=== PATIENT | male | born 1970 | race Caucasian/White ===

== ENCOUNTER → 2023-08-02 | Outpatient (CLI) | payer BC ==
[~2023-08-02] MED LIST: CEFAZOLIN SODIUM IV; LEVOFLOXACIN750 M2 PO; METFORMIN HYDR500 MG PO; XARE20MG PO; XARELTO15 M1 PO
== END | disposition home or self-care (01) ==
LOC: CARD 13:21
PROVIDERS: ATTEND Podiatrist
DX: Z01.818 Encounter for other preprocedural examination (principal); M19.09 Primary osteoarthritis, other specified site

== ENCOUNTER → 2023-11-01 | Day surgery (SDC) | payer BC ==
[2023-10-30 13:39] VITALS: BP 128/65
[~2023-11-01] VITALS: Ht 198.1 cm; Wt 112.9 kg
[~2023-11-01] MED LIST changes: +BUPIVACAINE 0.5% 30 ML IV ONE; +HYDROCODONE-AC1 EAC1 PO; +Ketamine Hydrochloride 500 MG/10 ML VIAL IV ONE; +LISINOPRIL5 MG PO; +Lidocaine Hydrochloride 2% 10 ML AMP IM ONE; +MOUNJARO5 MG/0.51 SQ; +Midazolam Hydrochloride 2 MG/2 ML VIAL IV ONE; +Midazolam Hydrochloride 2 MG/2 ML VIAL IV STA; +PROPOFOL 200 MG/20 ML VIAL IV ONE; +ROSUVASTATIN CA20 MG PO; +SODIUM CHLORIDE 0.9% 1,000 ML IV ONE; +SODIUM CHLORIDE 0.9% 1,000 ML IV SCH; +TRAMADOL HCL50 MG PO; +VIBRA-TAB100 MG PO; +Vancomycin Hydrochloride 1,000 MG VIAL T ONE; +XARELTO10 MG PO; +ceFAZolin sodium/sodium chlor 20 ML IV ONE; +ePHEDrine Sulfate 25 MG/5 ML SYRINGE IV ONE; +fentaNYL CITRATE 100 MCG/2 ML VIAL IV ONE
[2023-11-01 11:30] VITALS: BP 133/71
[2023-11-01 14:56] VITALS: BP 112/76
[2023-11-01 15:15] VITALS: BP 112/73
[2023-11-01 15:30] VITALS: BP 115/79
[2023-11-02 11:08] LABS: ACID FAST SPEC PROCESSING Tissue Grinding (.)
[2023-11-02 11:08] LABS: ACID FAST SPEC PROCESSING Tissue Grinding (.)
[2023-11-10 14:08] LABS: ORGANISM ID Final report (.)
== END | disposition home or self-care (01) ==
LOC: SDC 10-30 13:15
PROVIDERS: ATTEND Podiatrist
DX: T84.84XA Pain due to internal orthopedic prosthetic devices, implants and grafts, initial encounter (principal); M24.575 Contracture, left foot; E11.621 Type 2 diabetes mellitus with foot ulcer; L97.529 Non-pressure chronic ulcer of other part of left foot with unspecified severity; M86.8X7 Other osteomyelitis, ankle and foot; M19.072 Primary osteoarthritis, left ankle and foot; Z87.891 Personal history of nicotine dependence; Z98.890 Other specified postprocedural states; Z79.899 Other long term (current) drug therapy; X58.XXXA Exposure to other specified factors, initial encounter

== ENCOUNTER 2025-05-23 10:10 | Emergency (ER) | payer BC ==
[~2025-05-23] VITALS: Ht 195.5 cm; Wt 105.2 kg
[~2025-05-23 10:10] MED LIST changes: -BUPIVACAINE 0.5% 30 ML IV ONE; -Ketamine Hydrochloride 500 MG/10 ML VIAL IV ONE; -Lidocaine Hydrochloride 2% 10 ML AMP IM ONE; -Midazolam Hydrochloride 2 MG/2 ML VIAL IV ONE; -Midazolam Hydrochloride 2 MG/2 ML VIAL IV STA; -PROPOFOL 200 MG/20 ML VIAL IV ONE; -SODIUM CHLORIDE 0.9% 1,000 ML IV ONE; -SODIUM CHLORIDE 0.9% 1,000 ML IV SCH; -Vancomycin Hydrochloride 1,000 MG VIAL T ONE; -ceFAZolin sodium/sodium chlor 20 ML IV ONE; -ePHEDrine Sulfate 25 MG/5 ML SYRINGE IV ONE; -fentaNYL CITRATE 100 MCG/2 ML VIAL IV ONE
[2025-05-23] MEDS ORDERED: PREDNISONE50 MG PO (11:07)
[2025-05-23 11:44] LABS: BASO # 0.0 10*3/uL (0.0-0.1); BASO % 0.5 % (0.0-1.0); EOS # 0.1 10*3/uL (0.0-0.4); EOS % 1.0 % (1.0-4.0); MEAN CELL VOLUME 85.6 fl (80.0-94.0); MEAN CORPUSCULAR HGB 27.4 pg (27.0-31.0); MEAN PLATELET VOLUME 9.8 fl (9.6-12.3); MONO # 0.4 10*3/uL (0.1-1.0); MONO % 6.3 % (3.0-9.0); NEUT # 4.8 10*3/uL (2.3-7.9); NEUT % 76.4 % (47.0-73.0); NUCLEATED RED BLOOD CELL 0.0 % (0.0-0.0); NUCLEATED RED BLOOD CELL 0.0 10*3/uL (0.0-0.0); PLATELET COUNT AUTOMATED 221 10*3/uL (130-400); RED CELL DISTRI WIDTH 12.9 % (0-14.5)
[2025-05-23 12:00] LABS: BUN 10 mg/dl (9-23)
[2025-05-23] MEDS ORDERED: VIBRAMYCIN100 MG PO (12:04)
[2025-05-23] MEDS ORDERED: Doxycycline Hyclate 100 MG 2 TAB ED PACK PO SCH (12:05)
== END 2025-05-23 12:07 | disposition home or self-care (01) ==
LOC: ED 10:10
PROVIDERS: Nurse Practitioner Family
DX: M54.42 Lumbago with sciatica, left side (principal); F17.220 Nicotine dependence, chewing tobacco, uncomplicated; Z88.5 Allergy status to narcotic agent; Z79.899 Other long term (current) drug therapy; Z79.84 Long term (current) use of oral hypoglycemic drugs; Z89.422 Acquired absence of other left toe(s); Z89.421 Acquired absence of other right toe(s); Z98.890 Other specified postprocedural states